=== PATIENT | female | born 1985 ===

== ENCOUNTER 2025-01-02 10:00 | Outpatient (AMB) | payer MEDICARE, SELFPAY ==
--- NOTE | 2025-01-02 10:10 | MHC.OFFVIS ---
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 She was doing okay. Migraines were better with Depakote. She had a few headaches each month that were mild and relieved with ibuprofen. She has not had to use sumatriptan. Sleep was okay. [facility] Medical History (Updated 01/02/25 @ 10:12 by Anaya Hurst CNP) Congenital malformation Intellectual disability Legally blind HLD (hyperlipidemia) HTN (hypertension) Obesity Migraines Anxiety OCD (obsessive compulsive disorder) Migraine without aura Review of Systems Const Denies chills, Denies daytime sleepiness, Denies difficulty sleeping, Denies fatigue, Denies fever(s), Denies frequent falls, Reports headache(s), Denies increased appetite, Denies poor appetite, Denies snoring, Denies weakness, Denies weight gain and Denies weight loss Eyes Denies loss of vision ENT Denies vertigo, Denies dizziness and Reports headache(s) Card Denies chest pain at rest, Denies chest pain with activity, Denies syncope, Denies leg edema and Denies palpitations Resp Denies snoring GI Denies constipation, Denies heartburn, Denies diarrhea and Denies nausea Denies urinary frequency, Denies urinary incontinence and Denies urinary urgency Musc Denies abnormal gait, Denies numbness and Denies tingling Skin/Breast Denies dry skin and Denies rash Neuro Denies abnormal gait, Denies vertigo, Denies dizziness, Denies syncope, Denies frequent falls, Reports headache(s), Denies lack of coordination, Denies loss of vision, Denies memory loss, Denies numbness, Denies restless legs, Denies seizure-like activity, Denies tingling, Denies paresthesias, Denies tremor(s) and Denies weakness Psych Denies anxiety, Denies depression, Denies auditory hallucinations, Denies memory loss, Denies visual hallucinations and Denies suicidal ideation Endo Denies fatigue and Denies palpitations Physical Exam Const Other: General Appearance:? normal, in no acute distress. Skin:? no rashes, no significant birthmarks. Heart:? S1, S2 normal, no murmurs. Lungs:? clear anteriorly and posteriorly. Extremities:? no edema. Psych:? alert, oriented, cognitive function intact, cooperative with exam. Neuro Other: Mental Status:?Normal attention, orientation, and flat affect.? Cranial Nerves:?Could not see even closeby.?Face is symmetrical. Facial sensations are normal. Tongue is midline. Palate elevates symmetrically. Shoulder shrugging is normal. Hearing to bedside conversation is normal. Motor Examination:?DTRs trace. Sensory Exam:?....? Coordination:?No ataxia,?no titubation.? Gait Exam: Cautious with white cane. Cerebellar Signs:?[id number] is okay. ? Extrapyramidal System:?No tremor, rigidity with normal facial expressions.? Pronator Drift:?Not present.? Involuntary Movements:?No tremors seen.? Speech:?Normal.? Assessment & Plan Assessment & Plan (1) Migraine without aura: Code(s): G43.009 - Migraine without aura, not intractable, without status migrainosus Category: Medical Qualifiers: Intractability: not intractable Status migrainosus presence: without status migrainosus Qualified Code(s): G43.009 - Migraine without aura, not intractable, without status migrainosus Plan: Continue Depakote 250mg 1 tablet at bedtime. Continue sumatriptan 50mg 1 tablet as needed. Plan Meds tried: propranolol, topiramate Coding Level of Care Code Est Pt Level 3 (61001) Diagnoses Migraine without aura and without status migrainosus, not intractable G43.009 Intractability: not intractable Status migrainosus presence: without status migrainosus
--- OUTSIDE RECORDS SUMMARY | 2025-01-02 11:07 | XMS_ITS | Encounter Summary ---
Author Organization [facility] [address] Care Team Providers Care Workplace Relations Adviser Name Role Phone Ranjana Plummer MD Primary Care Provider [phone] Reason for Visit * Reason Onset Date Comments Appointment 12/18/2024 Encounter Details Date Type Department Care Team (Late Contact Info) Description 12/18/2024 Telephone Adult Medicine [facility] [address], [place] [phone] Ranjana Plummer MD [address] [place], [place] Social History Tobacco Use Types Packs/Day Years Used Date Smoking Tobacco: Never Smokeless Tobacco: Never Alcohol Use Standard Drinks/Week Comments No 0 (1 standard drink = 0.6 oz pur e alcohol) Comments No Sex and Gender Information Value Date Recorded Sex Assigned at Not on file Legal Sex Female 9:11 AM EST Gender Identity Not on file Sexual Orientation Not on file documented as of this encounter Progress Notes * Pennie Thayer - 12/18/2024 4:02 PM EDT Lmom to call me back - please contact Pennie when patient calls back Discuss CCV documented in this encounter Plan of Treatment Upcoming Encounters Date Type Department Care Team (Late Contact Info) Description 01/15/2025 11:15 AM EDT Office Visit Adult Medicine [facility] [address], [place] [phone] Ranjana Plummer MD [address], [place] documented as of this encounter Visit Diagnoses Not on filedocumented in this encounter Care Teams Workplace Relations Adviser Relationship Specialty Start Date End Date Ranjana Plummer MD [address] [place] [address] PCP - General Internal Medicine 03/05/21 documented as of this encounter
--- OUTSIDE RECORDS SUMMARY | 2025-01-02 11:07 | XMS_ITS | Clinical Summary ---
Author Organization [facility] [address] [place] [address] [place] [phone] Phone Care Team Providers Care Machine Guide Base Winder Name Role Phone Ranjana Plummer MD Primary Care Provider [phone] Allergies No known active allergies Medications divalproex (DEPAKOTE ER) 250 mg 24 hr tablet Take 1 tablet (250 mg total) by mouth 1 (one) time each day. Active SUMAtriptan (IMITREX) 50 mg tablet TAKE 1 TABLET BY MOUTH TWICE A DAY WITH AT LEAST 2 HOURS BETWEEN DOSES NEEDED FOR 30 DAYS Active ammonium lactate (AMLACTIN) 12 % cream Apply 1 Application topically 2 (two) times a day. APPLY TO AFFECTED AREA 01/03/20 24 Active ibuprofen (ADVIL,MOTRIN) 400 mg tablet TAKE 1 TABLET BY MOUTH EVERY 8 HOURS NEEDED FOR PAIN FOR UP TO 30 DAYS. 90 tablet 1 06/18/19 25 Active lisinopriL (PRINIVIL,ZESTR IL) 10 mg tablet TAKE 1 TABLET BY MOUTH DAILY. IN THE EVENING 90 tablet 1 09/11/19 25 Active propranoloL (INDERAL) 20 mg tablet TAKE 1 TABLET BY MOUTH TWICE A DAY 180 tablet 12/10/19 25 Active metFORMIN (GLUCOPHAGE) 1,000 mg tablet TAKE 1 TABLET BY MOUTH TWICE A DAY WITH MEALS 180 tablet 12/10/19 25 Active PARoxetine (PAXIL) 40 mg tablet TAKE 2 TABLETS (80 MG TOTAL) BY MOUTH 1 (ONE) TIME EACH DAY IN THE MORNING. 180 tablet 12/10/19 25 Active hydrOXYzine HCL (ATARAX) 25 mg tablet TAKE 1 TABLET BY MOUTH FOUR TIMES A DAY NEEDED FOR ITCHING FOR 4 DAYS 12/19/19 25 Active doxycycline (VIBRAMYCIN) 100 mg capsule Take 1 capsule (100 mg total) by mouth 2 (two) times a day. 7 days 12/19/19 25 Active betamethasone dipropionate (DIPROSONE) 0.05 % cream apply to affected area twice a day for 14 days 12/13/19 25 Active silver sulfADIAZINE (Silvadene) 1 % cream Apply topically 1 (one) time each day. 50 g 12/24/19 25 Active metFORMIN (GLUCOPHAGE) 1,000 mg tablet Take 1 tablet (1,000 mg total) by mouth 2 (two) times a day with meals. 180 each 1 06/17/19 25 025 Discontinued PARoxetine (PAXIL) 40 mg tablet Take 2 tablets (80 mg total) by mouth 1 (one) time each day in the morning. 180 tablet 1 06/17/19 25 025 Discontinued propranoloL (INDERAL) 20 mg tablet Take 1 tablet (20 mg total) by mouth 2 (two) times a day. 180 tablet 1 06/17/19 25 025 Discontinued Active Problems Problem Noted Date Diagnosed Date Anxiety 08/02/2021 Severe obesity (BMI 35.0-39. 9) with comorbidity ([facility] V24, [facility] V28) 06/02/2016 Gan's syndrome 06/18/2015 Keratosis pilaris 07/17/2014 Hyperlipidemia 03/21/2006 Overview (06/12/2024): Impairment level: low vision of both eyes 2005 Overview (06/12/2024): due to retinal degeneration, Gan's syndrome, legally blind, followed by dr bowman Migraines 03/21/2006 Overview (06/12/2024): Mild intellectual disability 03/21/2006 Obsessive-compulsive persona lity disorder ([facility] V24, [facility] V28) 03/21/2006 Overview (03/13/2024): on Anafranil 1997, then Paxil since 1998 Polycystic ovaries 03/21/2006 Overview (06/12/2024): followed by dr omi bahena, endocrine on Metformin Resolved Problems Problem Noted Date Diagnosed Date Resolved Date Hypertensive heart disease w ithout heart failure 03/21/2006 06/12/2024 Overview (06/12/2024): Encounters Date Type Department Care Team Description 12/23/2024 2:00 PM EDT Office Visit Adult Medicine [address] [phone] Jenna Hoffman PA Partial thickness burn of left forearm, initial encounter (Primary Dx); Elevated blood pressure reading 12/18/2024 Telephone Adult [address] [phone] Ranjana Plummer MD 12/18/2024 Telephone Adult [address] [phone] Ranjana Plummer MD 12/09/2024 Nurse Triage [address] [phone] Ranjana Plummer MD 12/03/2024 Billing Patient Not Present [address] [phone] Ranjana Plummer MD 11/22/2024 Telephone Adult Medicine [address] [phone] Ranjana Plummer MD 11/08/2024 Telephone Adult Medicine [address] [phone] Ranjana Plummer MD 10/28/2024 Telephone Adult Medicine [address] [phone] Ranjana Plummer MD from Last 3 Months Immunizations Name Administration Dates Next Due DTP 04/30/1990, 7,1985,09/10,1985 IEdG-PII-QPN (Pentacel) 2mo to less than 5yo 05/20/1987 [id number] (Pediarix) 6 w ks to less than 7yo 04/30/1990,12/25/1986,1985,09/10,1985 HPV, Quadrivalent 08/12/2010,04/08/2010,02/05/20 10 Hepatitis B Pediatric (Enger ix B; Recombivax HB) to less than 20 yo 01/16/1998,09/23/1997,08/22/1997 Influenza Quadravalent, MDCK , 0.5ml, preservative free (Flucelvax) 6mo and older 03/16/2023,02/12/2022,12/23/2018,01/04 Influenza Quadrivalent, 0.5m l, preservative free (Fluarix; FluLaval; Fluzone) ages 6mo and older (Afluria) 3yo and older 02/06/2021 Influenza trivalent, 0.5mL, preservative free (Fluarix; FluLaval; Fluzone) ages 6mo and older (Afluria) 3 years and older 01/03/2024,02/03/2021,12/18/2019,06/14,02/09/2008,03/03/2007 Influenza trivalent, with pr eservative (Fluzone; Afluria) 6mo and older 06/02/2016,07/17/2014,04/04/2013,01/25,02/25/2006,01/26/2005,04/04/1996 MMR, measles mumps and rubel la Live (Priorix; M-M-R II) 12mo and older 05/21/1996,08/26/1986 Meningococcal MCV4P 05/24/2007 Moderna SARS-CoV-2 COVID-19, mRNA, LNP-S, preservative free 05/12/2021 OPV 04/30/1990, 7,1985,09/10,1985 PPD Test 06/14/2012,01/17/1986 TD, Adsorbed, Preservative Free 08/22/1997 Td Tetanus diptheria (Tdvax) 7yo and older 01/04/2018 Tdap Tetanus diptheria acell ular pertussis (Boostrix; Adacel) 7yo and older 05/24/2007 Varicella live (Varivax) 12m o and older 05/15/1991 Surgical History Surgery Date Site/Laterality Comments TYMPANOSTOMY TUBE PLACEMENT , TONSILLECTOMY Medical History Medical History Date Comments Mild intellectual disabilities 03/21/2006 Obsessive-compulsive persona lity disorder (CMS/HCC V24, CMS/HCC V28) 03/21/2006 DX:Obsessive-compu lsive personality disorder (HCC); COMMENT: on Anafranil 1997, then Paxil since 1998 Moderate or severe vision im pairment, both eyes, impairment level not further specified 03/21/2006 due to retinal degeneration, Gan's syndrome, legally blind, followed by dr bowman Polycystic ovaries 03/21/[address] omi bahena, endocrine Migraine, unspecified, witho ut mention of intractable migraine without mention of status migrainosus 03/21/2006 Personal history of benign n eoplasm of the brain 03/21/2006 : 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, unchanged on MRI 1994, no need for further followup Anxiety 08/02/2021 Family History Medical History Relation Name Comments Diabetes Father HTN, cholestero l, glaucoma, parkinsons Lung cancer Maternal Grandfather Diabetes Maternal Grandmother HTN, ch olesterol Hypertension Mother DM, cholesterol elevated blood pressure Sister 1 ocd, lupus Other: gan's syndrome Sister 2 cohe n's Relation Name Status Comments Father Maternal Grandfather Maternal Grandmother Mother Alive Paternal Grandfather Paternal Grandmother Sister 1 Alive Sister 2 Alive Social History Tobacco Use Types Packs/Day Years Used Date Smoking Tobacco: Never Smokeless Tobacco: Never Tobacco Cessation:Counseling Given: Not Answered Alcohol Use Standard Drinks/Week Comments No 0 (1 standard drink = 0.6 oz pur e alcohol) Comments No Sex and Gender Information Value Date Recorded Sex Assigned at Not on file Legal Sex Female 9:11 AM EST Gender Identity Not on file Sexual Orientation Not on file Obstetrics History Last Filed Vital Signs Vital Sign Reading Time Taken Comments Blood Pressure 136/98 12/23/2024 2:12 PM EDT Pulse 91 12/23/2024 1:53 PM EDT Temperature 35.1 C (95.2 F) 12/23/2024 1:53 PM EDT Respiratory Rate 16 12/23/2024 1:53 PM EDT Oxygen Saturation 98% 12/23/2024 1:53 PM EDT Inhaled Oxygen Concentration - - Weight 98.4 kg (217 lb) 12/23/2024 1:53 PM EDT Height 170.2 cm (5' 7 ) 12/23/2024 1:53 PM EDT Body Mass Index 33.99 12/23/2024 1:53 PM EDT Plan of Treatment Upcoming Encounters Date Type Department Care Team (Late st Contact Info) Description 01/15/2025 11:15 AM EDT Office Visit Adult Medicine [facility] [address] [place], [place] [phone] Ranjana Plummer MD [address] [place], [place] Health Maintenance Due Date Last Done Comments Pneumococcal Vaccine: Pediatrics (0 to 5 Years) and At-Risk Patients (6 to 49 Years) (1 of 2 - PCV) 2004 HIV Screening 04/09/2022 Hepatitis C Screening 04/09/2022 Medicare Annual Wellness Visit 04/09/2022 Social Influencers of Health Screening 04/09/2022 Depression Screening 05/01/2024 09/08/2023 Hypertension/CHF/CAD Annual BMP Blood Test 10/01/2024 10/02/2023, 10/02/2023 COVID-19 Vaccine ( season) 2024 09/15/2023, 05/12/2021, 08/08/2020 Influenza Vaccine (#1) 2024 , 03/16/2023, 02/12/2022, Additional history exists Cervical Cancer Screening: HPV 12/02/2026 12/02/2021 DTaP,Tdap,and Td Vaccines (8 - Td or Tdap) 01/05/2028 01/04/2018, 05/24/2007, 08/22/1997, Additional history exists Cholesterol Screening (Lipid Panel) 10/01/2028 10/02/2023, 10/02/2023 HIB Vaccines Completed 05/20/1987 IPV Vaccines Completed 04/30/1990, 04/02, 05/20/1987, Additional history exists Varicella Vaccines Aged Out 05/15/1991 No longer eligible based on patient's age to complete this topic MMR Vaccines Completed 05/21/1996, 08/26/1986 Hepatitis B Vaccines Completed 01/16/1998, 09/23/1997, 08/22/1997, Additional history exists Meningococcal ACWY Vaccine Aged Out 05/24/2007 N o longer eligible based on patient's age to complete this topic HPV Vaccines Completed 08/12/2010, 12/2009, 02/04/2010 Hepatitis A Vaccines Aged Out No long er eligible based on patient's age to complete this topic Meningococcal B Vaccine Aged Out No l onger eligible based on patient's age to complete this topic RSV Immunization Patients Under 20 months Aged Out No longer eligible based on patient's age to complete this topic Procedures Procedure Name Priority Date/Time Associated Diagnosis Comments ANNUAL BMP BLOOD TEST Routine 10/02/2023 LIPID PANEL Routine 10/02/2023 DEPRESSION SCREENING Routine 09/08/2023 HPV Routine 12/02/2021 from Last 3 Months or Most Recently Relevant to Health Maintenance Results * Annual BMP Blood Test (10/02/2023) Annual BMP Blood Test abstracted us Historical Provider HEALTH MAINTENANCE Final Result * (ABNORMAL) Lipid panel (10/02/2023) LDL/HDL Ratio 5(A) 0 - 4 Triglycerides 220(A) 0 - 150 mg/dL Cholesterol 158 0 - 200 mg/dL HDL 35(A) >=40 mg/dL LDL Cholesterol 79 0 - 100 mg/dL Blood Venous blood specimen / Unknown Historical Provider LAB BLOOD ORDERABLES Paloma l Result * Depression Screening (09/08/2023) Pathologist [facility] Depression Screening abstracted Historical Provider HEALTH MAINTENANCE Final Result * Cervical Cancer Screening: HPV (12/02/2021) Pathologist [facility] Cervical Cancer Screening: HPV no interpretation , abstracted Historical Provider HEALTH MAINTENANCE Final Result from Last 3 Months or Most Recently Relevant to Health Maintenance Insurance MEDICARE [place]ICAID [place] Care Teams Machine Guide Base Winder Relationship Specialty Start Date End Date Ranjana Plummer MD [address] [place] [address] PCP - General Internal Medicine 03/05/21
== END 2025-01-02 10:22 | disposition home or self-care (01) ==
LOC: HO.HSM 10:01
PROVIDERS: PCP Internal Medicine; Referring Provider Internal Medicine; Visit Provider Registered Nurse
DX: G43.009 Migraine without aura, not intractable, without status migrainosus (principal)
CPT/HCPCS: 99213

== ENCOUNTER → 2025-01-02 10:00 | Outpatient (BNVA) | payer MEDICARE, MEDICAID, SELFPAY | PROVIDERS: PCP Internal Medicine; Referring Provider Internal Medicine; Visit Provider Registered Nurse | DX: G43.009 Migraine without aura, not intractable, without status migrainosus (principal) | CPT/HCPCS: 99212 ==